=== PATIENT | female | born 1935 | race Caucasian/White ===

== ENCOUNTER 2018-01-21 11:23 | Outpatient (CLI) | payer MEDICARE ==
[2018-01-21 12:58] LABS: Hemoglobin 13.4 g/dL (12.0-16.0); Mean Corpuscular HGB CONC 33.6 g/dL (32.0-36.0); Mean Corpuscular Hemoglobin 33.1 pg (27.0-31.0); Mean Corpuscular Volume 98.6 fl (81.0-99.0); Mean Platelet Volume 9.1 fL (7.4-10.4); Platelet Count 288 thou/uL (130-400); RBC Distribution Width 12.4 % (11.5-14.5); Red Blood Cell (RBC) Count 4.06 mill/uL (4.20-5.40)
[2018-01-21 13:16] LABS: Anion Gap 14 mmol/L (10-20); BUN (Urea Nitrogen) 13 mg/dL (9.8-20.1); Calc. Creatinine Clearance 0 mL/min (70-130); Calcium 9.6 mg/dL (7.8-10.44); Carbon Dioxide 26 mmol/L (23-31); Chloride 105 mmol/L (98-107); Estimated GFR-MDRD 69; Glucose 106 mg/dL (83-110); Potassium 3.6 mmol/L (3.5-5.1); Sodium 141 mmol/L (136-145)
== END 2018-01-21 11:24 | disposition home or self-care (01) ==
LOC: LABBT 11:23
PROVIDERS: ATTEND Internal Medicine Cardiovascular Disease
DX: Z01.812 Encounter for preprocedural laboratory examination (principal); I48.91 Unspecified atrial fibrillation
CPT/HCPCS: 80048; 85027

== ENCOUNTER 2018-01-22 06:01 | Day surgery (SDC) | payer MEDICARE ==
[2018-01-21 11:33] VITALS: BMI 35.9
[2018-01-22] MEDS ORDERED: Diprivan 20 ML ONE (07:40)
--- NOTE | 2018-01-22 09:31 | OP ---
DATE OF PROCEDURE: 01/22/2018 PROCEDURE: Cardioversion INDICATIONS: Atrial fibrillation, symptomatic. SURGEON: Dr. Flex Baker The patient was brought to the post-cath area in the fasting state. She was sedated by Anesthesia. She was given a 200 joules direct current energy and converted to sinus rhythm. The energy with sync hronized. CONCLUSION: Successful cardioversion. DIAGNOSIS: Atrial fibrillation.
== END 2018-01-22 08:53 | disposition home or self-care (01) ==
LOC: CCL 06:01
PROVIDERS: ATTEND Internal Medicine Cardiovascular Disease
PROC: 5A2204Z Restoration of Cardiac Rhythm, Single (ICD-10-PCS; principal; 2018-01-22)
DX: I48.1 Persistent atrial fibrillation (principal); E11.9 Type 2 diabetes mellitus without complications; I11.0 Hypertensive heart disease with heart failure; I50.32 Chronic diastolic (congestive) heart failure; Z79.01 Long term (current) use of anticoagulants; Z79.899 Other long term (current) drug therapy
CPT/HCPCS: 92960; J2704

== ENCOUNTER 2018-06-26 12:56 | Outpatient (CLI) | payer MEDICARE ==
[2018-06-26 15:32] LABS: #Basophils 0.1 thou/uL (0.0-0.2); #Eosinphils 0.2 thou/uL (0.0-0.7); #Lymphocytes 4.4 thou/uL (1.20-3.40); #Monocytes 0.6 thou/uL (0.11-0.59); #Neutrophils 5.3 thou/uL (1.40-6.50); %Basophils 0.9 % (0.0-1.0); %Eosinophils 2.3 % (0.0-10.0); %Lymphocytes 41.1 % (21.0-51.0); %Neutrophils 49.8 % (42.0-75.0); Hemoglobin 12.7 g/dL (12.0-16.0); Mean Platelet Volume 9.1 fL (7.4-10.4); Platelet Count 294 thou/uL (130-400); RBC Distribution Width 12.1 % (11.5-14.5); Red Blood Cell (RBC) Count 3.73 mill/uL (4.20-5.40); White Blood Cell (WBC) Count 10.6 thou/uL (4.8-10.8)
[2018-06-26 15:53] LABS: Anion Gap 15 mmol/L (10-20); BUN (Urea Nitrogen) 15 mg/dL (9.8-20.1); Calc. Creatinine Clearance 0 mL/min (70-130); Calcium 9.2 mg/dL (7.8-10.44); Carbon Dioxide 24 mmol/L (23-31); Chloride 105 mmol/L (98-107); Estimated GFR-MDRD 65; Glucose 74 mg/dL (83-110); Potassium 3.9 mmol/L (3.5-5.1); Sodium 140 mmol/L (136-145)
== END 2018-06-26 12:57 | disposition home or self-care (01) ==
LOC: LABBT 12:56
PROVIDERS: ATTEND Internal Medicine Cardiovascular Disease
DX: Z01.812 Encounter for preprocedural laboratory examination (principal)
CPT/HCPCS: 80048; 85025

== ENCOUNTER → 2018-07-03 | Day surgery (SDC) | payer MEDICARE ==
[~2018-07-03] MED LIST: PROPOFOL 0 ML ONE; PROPOFOL 20 ML ONE
--- NOTE | 2018-07-03 09:37 | OP ---
CARDIOLOGY PROCEDURE NOTE: Date: 07/03/18 PROCEDURE: Cardioversion. INDICATION: Recurrent atrial fibrillation. PROCEDURE DETAILS: The patient was brought to the recovery area in the fasting state. She was given intravenous sedation by anesthesia. Following that, she was given 150 joules of direct current energy synchronized and sh e converted to sinus rhythm. CONCLUSION: Successful cardioversion.
--- NOTE | 2018-07-03 09:47 | DIS ---
Ms. Navarro came in for outpatient cardioversion that was successfully done with 150 joules. The patien t developed difficulty breathing with fluid retention after a previous cardioversion therefore we man l give her furosemide 40 mg orally, potassium 40 mEq orally today and then resume previous dose. She will see us in the office. She will take amiodarone 200 mg twice a day for 1 week, then 200 mg once a day. If she has recurrent atrial fibrillation I would give a very strong consideration to a biven tricular pacemaker insertion and ablating the AV junction at a later time. I would not cardiovert ag ain if there is any recurrence anytime in the near future.
== END ==
LOC: SDC 06:06
PROVIDERS: ATTEND Internal Medicine Cardiovascular Disease
PROC: 5A2204Z Restoration of Cardiac Rhythm, Single (ICD-10-PCS; principal; 2018-07-03)
DX: I48.1 Persistent atrial fibrillation (principal); Z79.01 Long term (current) use of anticoagulants; Z79.899 Other long term (current) drug therapy; Z88.2 Allergy status to sulfonamides
CPT/HCPCS: 92960; J2704

== ENCOUNTER → 2021-02-22 | Day surgery (SDC) | payer MEDICARE ==
[2021-02-20 09:12] VITALS: BMI 31.6
[~2021-02-22] MED LIST changes: -PROPOFOL 0 ML ONE
[2021-02-22 07:20] LABS: #Basophils 0.1 thou/uL (0.0-0.2); #Eosinphils 0.1 thou/uL (0.0-0.7); #Lymphocytes 3.7 thou/uL (1.20-3.40); #Monocytes 0.6 thou/uL (0.11-0.59); #Neutrophils 5.7 thou/uL (1.40-6.50); %Basophils 1.3 % (0.0-1.0); %Eosinophils 1.4 % (0.0-10.0); %Lymphocytes 35.9 % (21.0-51.0); %Monocytes 5.8 % (0.0-10.0); %Neutrophils 55.7 % (42.0-75.0); Hemoglobin 14.1 g/dL (12.0-16.0); Mean Corpuscular HGB CONC 33.5 g/dL (32.0-36.0); Mean Corpuscular Hemoglobin 34.9 pg (27.0-31.0); Mean Platelet Volume 9.4 fL (7.4-10.4); Platelet Count 240 thou/uL (130-400); RBC Distribution Width 11.6 % (11.5-14.5); Red Blood Cell (RBC) Count 4.04 mill/uL (4.20-5.40); White Blood Cell (WBC) Count 10.2 thou/uL (4.8-10.8)
[2021-02-22 07:43] LABS: Anion Gap 15 mmol/L (10-20); BUN (Urea Nitrogen) 27 mg/dL (9.8-20.1); Calc. Creatinine Clearance 50 mL/min (70-130); Calcium 9.3 mg/dL (7.8-10.44); Carbon Dioxide 21 mmol/L (23-31); Chloride 108 mmol/L (98-107); Glucose 109 mg/dL (83-110); Potassium 4.4 mmol/L (3.5-5.1); Sodium 140 mmol/L (136-145)
== END ==
LOC: CCL 05:57
PROVIDERS: ATTEND Internal Medicine Cardiovascular Disease
PROC: 5A2204Z Restoration of Cardiac Rhythm, Single (ICD-10-PCS; principal; 2021-02-22)
DX: I48.0 Paroxysmal atrial fibrillation (principal); E78.2 Mixed hyperlipidemia; I11.0 Hypertensive heart disease with heart failure; I50.32 Chronic diastolic (congestive) heart failure; I73.9 Peripheral vascular disease, unspecified; I65.23 Occlusion and stenosis of bilateral carotid arteries; E04.1 Nontoxic single thyroid nodule; I35.0 Nonrheumatic aortic (valve) stenosis; Z79.01 Long term (current) use of anticoagulants; Z79.899 Other long term (current) drug therapy; Z88.2 Allergy status to sulfonamides
CPT/HCPCS: 36415; 80048; 85025; 93005; 93010; J2704

== ENCOUNTER 2022-10-19 14:55 | Inpatient (IN) | payer MEDICARE ==
[2022-10-19] MEDS ORDERED: Bisacodyl 5 MG TAB PO PRN (20:18)
[2022-10-19] MEDS ORDERED: Guaifenesin DM 100-10/5 ML UDCUP PO PRN (20:18)
[2022-10-19] MEDS ORDERED: Senokot S 8.6-50 MG TAB PO PRN (20:18)
[2022-10-19] MEDS ORDERED: Ondansetron ODT 4 MG TAB PO PRN (20:18)
[2022-10-19] MEDS ORDERED: Ondansetron PF 4 MG/2 ML Vial IVP PRN (20:18)
[2022-10-19] MEDS ORDERED: Bisacodyl 10 MG SUPP PR PRN (20:18)
[2022-10-19] MEDS ORDERED: Levalbuterol HCl 0.63 MG/3 ML NEB NEB PRN (20:25)
[2022-10-19] MEDS ORDERED: Sodium Chloride 0.9% 1,000 ML IV SCH (20:30)
[2022-10-19] MEDS ORDERED: Dextrose 50% Abboject 50 ML SYRINGE SLOW IVP PRN (20:31)
[2022-10-19] MEDS ORDERED: HumaLOG 300 UNITS/3 ML VIAL SC PRN ×2 (20:31)
[2022-10-19] MEDS ORDERED: Dextrose 5% in Water 1,000 ML IV PRN (20:31)
[2022-10-19] MEDS: traMADol HCl 50 MG TAB PO PRN (22:53)
[2022-10-20] MEDS ORDERED: ALPRAZolam 0.25 MG TAB PO SCH (04:15)
[2022-10-20 06:04] LABS: ALT (SGPT) 85 U/L (8-55); AST (SGOT) 64 U/L (5-34); Albumin 2.9 g/dL (3.4-4.8); Alkaline Phosphatase 184 U/L (40-110); Anion Gap 15 mmol/L (10-20); BUN (Urea Nitrogen) 38 mg/dL (9.8-20.1); Bilirubin, Total 0.5 mg/dL (0.2-1.2); Calc. Creatinine Clearance 56 mL/min (70-130); Calcium 8.5 mg/dL (7.8-10.44); Carbon Dioxide 15 mmol/L (23-31); Chloride 113 mmol/L (98-107); Estimated GFR 64; Glucose 83 mg/dL (83-110); Magnesium 2.2 mg/dL (1.6-2.6); Potassium 4.6 mmol/L (3.5-5.1); Protein, Total 5.9 g/dL (5.8-8.1); Sodium 138 mmol/L (136-145)
[2022-10-20 06:53] LABS: Band 9 % (5-11); Lymphocytes 9 % (21-51); MDiff Complete? YES; Mean Corpuscular HGB CONC 31.5 g/dL (32.0-36.0); Mean Corpuscular Hemoglobin 33.9 pg (27.0-31.0); Mean Platelet Volume 10.1 fL (7.4-10.4); Monocytes 3 % (0-10); Neutrophil 79 % (42-75); Platelet Count 239 10x3/uL (130-400); RBC Distribution Width 12.7 % (11.5-14.5); RBC Morphology Normal; Red Blood Cell (RBC) Count 4.12 mill/uL (4.20-5.40)
[2022-10-20] MEDS: FLUoxetine HCl 20 MG CAP PO SCH (08:50)
[2022-10-20] MEDS: Valsartan 80 MG TAB PO SCH (08:50)
[2022-10-20] MEDS: Potassium Chloride 20 MEQ TAB PO SCH (08:50)
[2022-10-20] MEDS: Ezetimibe 10 MG TAB PO SCH (08:51)
[2022-10-20] MEDS: Spironolactone 25 MG TAB PO SCH (08:51)
[2022-10-20] MEDS: Levothyroxine Sodium 75 MCG TAB PO SCH (08:51)
[2022-10-20] MEDS ORDERED: Pantoprazole 40 MG VIAL IVP SCH (09:00)
[2022-10-20] MEDS ORDERED: Furosemide 20 MG TAB PO SCH (09:00)
[2022-10-20] MEDS: Furosemide 20 MG/2 ML VIAL SLOW IVP SCH (15:43)
[2022-10-21] MEDS ORDERED: ALPRAZolam 0.25 MG TAB PO SCH (00:15)
[2022-10-21] MEDS: Furosemide 20 MG/2 ML VIAL SLOW IVP SCH (05:46)
[2022-10-21] MEDS ORDERED: Digoxin 0.125 MG TAB PO SCH ×2 (09:00)
[2022-10-21] MEDS: Spironolactone 25 MG TAB PO SCH (09:51)
[2022-10-21] MEDS: Levothyroxine Sodium 75 MCG TAB PO SCH (09:55)
[2022-10-21] MEDS: Ezetimibe 10 MG TAB PO SCH (09:56)
[2022-10-21] MEDS ORDERED: FLUoxetine HCl 10 MG CAP PO SCH (10:00)
[2022-10-21] MEDS: Potassium Chloride 20 MEQ TAB PO SCH (10:01)
[2022-10-21] MEDS: Valsartan 80 MG TAB PO SCH (10:10)
[2022-10-21] MEDS: FLUoxetine HCl 20 MG CAP PO SCH (10:18)
[2022-10-21 11:22] LABS: Anion Gap 17 mmol/L (10-20); BUN (Urea Nitrogen) 31 mg/dL (9.8-20.1); Calc. Creatinine Clearance 49 mL/min (70-130); Calcium 8.9 mg/dL (7.8-10.44); Carbon Dioxide 16 mmol/L (23-31); Chloride 105 mmol/L (98-107); Estimated GFR 58; Glucose 119 mg/dL (83-110); Potassium 5.2 mmol/L (3.5-5.1); Sodium 133 mmol/L (136-145)
[2022-10-21 11:34] LABS: Lactic Acid 2.6 mmol/L (0.5-2.2)
[2022-10-21 12:14] LABS: #Basophils 0.1 thou/uL (0.0-0.2); #Eosinphils 0.1 thou/uL (0.0-0.7); #Lymphocytes 2.3 thou/uL (1.20-3.40); #Monocytes 1.2 thou/uL (0.11-0.59); #Neutrophils 18.6 thou/uL (1.40-6.50); %Basophils 0.2 % (0.0-1.0); %Eosinophils 0.3 % (0.0-10.0); %Lymphocytes 10.4 % (21.0-51.0); %Monocytes 5.3 % (0.0-10.0); %Neutrophils 83.8 % (42.0-75.0); Hemoglobin 15.4 g/dL (12.0-16.0); Mean Platelet Volume 10.2 fL (7.4-10.4); Platelet Count 252 10x3/uL (130-400); RBC Distribution Width 12.8 % (11.5-14.5); Red Blood Cell (RBC) Count 4.53 mill/uL (4.20-5.40); White Blood Cell (WBC) Count 22.2 10x3/uL (4.8-10.8)
[2022-10-21 14:50] LABS: Bacteria/HPF None Seen HPF (None Seen); Bilirubin Negative (Negative); Blood, Urine Negative (Negative); Clarity Clear (Clear); Glucose, Urine (Dipstick) Normal (Negative); Ketone, Urine Negative (Negative); Leukocyte Negative Leu/uL (Negative); Nitrite Negative (Negative); Protein, Urine (Dipstick) Negative (Neg-Trace); RBC/HPF None Seen HPF (0-3); Specific Gravity, Urine 1.038 (1.002-1.036); Squamous Epithelial 0-3 HPF (0-3); Urobilinogen Normal mg/dL (Less than 2); WBC/HPF 0-3 HPF (0-3); pH, Urine 5.5 (5.0-9.0)
[2022-10-21] MEDS ORDERED: Iopamidol 370 76% 100 ML VIAL ONE (15:34)
[2022-10-21 16:39] LABS: Pleural Fluid, Protein 2.6 g/dL
[2022-10-21 17:01] LABS: RBC Count-Automated (BF) 2765 /cu.mm; WBC/Nucleated-Auto (BF) 674 /cu.mm
[2022-10-21 18:22] LABS: BF Color Yellow; Body Fluid Source Thoracentesis Fluid; Clarity Hazy (Clear); Tube # EDTA
[2022-10-21 18:37] LABS: BF Segmented Neutrophils 9 %; Cell Count Non Hematic 12 %; Eosinophils 5 %; Lymphocytes 74 %
[2022-10-21 19:56] LABS: Lactic Acid 2.1 mmol/L (0.5-2.2)
[2022-10-21 19:59] LABS: Anion Gap 15 mmol/L (10-20); BUN (Urea Nitrogen) 34 mg/dL (9.8-20.1); Calc. Creatinine Clearance 49 mL/min (70-130); Calcium 9.4 mg/dL (7.8-10.44); Carbon Dioxide 16 mmol/L (23-31); Chloride 107 mmol/L (98-107); Estimated GFR 58; Glucose 116 mg/dL (83-110); Potassium 4.4 mmol/L (3.5-5.1); Sodium 134 mmol/L (136-145)
[2022-10-21] MEDS ORDERED: Sodium Bicarb 50 MEQ/50 ML Abboject 8.4% SYRINGE IVP SCH (20:45)
[2022-10-21] MEDS: Multivit, Therapeutic 1 TAB PO SCH ×2 (22:18→22:19)
[2022-10-21] MEDS: Sodium Bicarbonate Tab 325 MG TAB PO SCH (22:19)
[2022-10-21] MEDS: Folic Acid 1 MG TAB PO SCH (22:19)
[2022-10-21] MEDS: guaiFENesin ER 600 MG TAB PO SCH (22:19)
[2022-10-21] MEDS: Cyanocobalamin (Vitamin B-12) 1,000 MCG TAB PO SCH (22:19)
[2022-10-21] MEDS ORDERED: Sodium Bicarb 50 MEQ/50 ML VIAL IVP SCH (22:30)
[2022-10-22 05:10] LABS: #Eosinphils 0.1 thou/uL (0.0-0.7); #Lymphocytes 2.8 thou/uL (1.20-3.40); #Monocytes 1.3 thou/uL (0.11-0.59); #Neutrophils 14.9 thou/uL (1.40-6.50); %Basophils 0.1 % (0.0-1.0); %Eosinophils 0.4 % (0.0-10.0); %Lymphocytes 14.5 % (21.0-51.0); %Monocytes 6.6 % (0.0-10.0); %Neutrophils 78.4 % (42.0-75.0); Hemoglobin 15.2 g/dL (12.0-16.0); Mean Corpuscular HGB CONC 33.2 g/dL (32.0-36.0); Mean Corpuscular Hemoglobin 34.4 pg (27.0-31.0); Mean Platelet Volume 9.7 fL (7.4-10.4); Platelet Count 266 10x3/uL (130-400); RBC Distribution Width 12.9 % (11.5-14.5); Red Blood Cell (RBC) Count 4.42 mill/uL (4.20-5.40)
[2022-10-22 05:29] LABS: Anion Gap 15 mmol/L (10-20); BUN (Urea Nitrogen) 32 mg/dL (9.8-20.1); Calc. Creatinine Clearance 51 mL/min (70-130); Calcium 9.2 mg/dL (7.8-10.44); Carbon Dioxide 20 mmol/L (23-31); Chloride 106 mmol/L (98-107); Estimated GFR 61; Glucose 112 mg/dL (83-110); Potassium 4.3 mmol/L (3.5-5.1); Sodium 137 mmol/L (136-145)
[2022-10-22] MEDS: FLUoxetine HCl 10 MG CAP PO SCH (10:34)
[2022-10-22] MEDS: Valsartan 80 MG TAB PO SCH (10:34)
[2022-10-22] MEDS: Spironolactone 25 MG TAB PO SCH (10:34)
[2022-10-22] MEDS: Sodium Bicarbonate Tab 325 MG TAB PO SCH ×3 (10:34→21:27)
[2022-10-22] MEDS: Ezetimibe 10 MG TAB PO SCH (10:34)
[2022-10-22] MEDS: Levothyroxine Sodium 75 MCG TAB PO SCH (10:36)
[2022-10-22] MEDS: guaiFENesin ER 600 MG TAB PO SCH ×2 (10:36→21:27)
[2022-10-22] MEDS: pyridOXINE 50 MG (B6) TAB PO SCH (10:36)
[2022-10-22] MEDS: Folic Acid 1 MG TAB PO SCH (21:27)
[2022-10-22] MEDS: Multivit, Therapeutic 1 TAB PO SCH (21:28)
[2022-10-22] MEDS: Cyanocobalamin (Vitamin B-12) 1,000 MCG TAB PO SCH (21:28)
[2022-10-23 04:53] LABS: #Eosinphils 0.1 thou/uL (0.0-0.7); #Lymphocytes 3.1 thou/uL (1.20-3.40); #Monocytes 1.2 thou/uL (0.11-0.59); %Basophils 0.1 % (0.0-1.0); %Eosinophils 0.5 % (0.0-10.0); %Lymphocytes 15.9 % (21.0-51.0); %Neutrophils 77.5 % (42.0-75.0); Hemoglobin 14.7 g/dL (12.0-16.0); Mean Corpuscular HGB CONC 33.5 g/dL (32.0-36.0); Mean Corpuscular Hemoglobin 34.8 pg (27.0-31.0); Mean Platelet Volume 10.1 fL (7.4-10.4); Platelet Count 252 10x3/uL (130-400); Red Blood Cell (RBC) Count 4.22 mill/uL (4.20-5.40); White Blood Cell (WBC) Count 19.3 10x3/uL (4.8-10.8)
[2022-10-23 05:11] LABS: Anion Gap 16 mmol/L (10-20); BUN (Urea Nitrogen) 38 mg/dL (9.8-20.1); Calc. Creatinine Clearance 50 mL/min (70-130); Calcium 9.4 mg/dL (7.8-10.44); Carbon Dioxide 20 mmol/L (23-31); Chloride 105 mmol/L (98-107); Estimated GFR 58; Glucose 103 mg/dL (83-110); Magnesium 2.2 mg/dL (1.6-2.6); Potassium 4.5 mmol/L (3.5-5.1); Sodium 136 mmol/L (136-145)
[2022-10-23 05:14] LABS: Phosphorus 3.7 mg/dL (2.3-4.7)
[2022-10-23] MEDS: pyridOXINE 50 MG (B6) TAB PO SCH (09:49)
[2022-10-23] MEDS: Valsartan 80 MG TAB PO SCH (09:49)
[2022-10-23] MEDS: FLUoxetine HCl 10 MG CAP PO SCH (09:50)
[2022-10-23] MEDS: Levothyroxine Sodium 75 MCG TAB PO SCH (09:50)
[2022-10-23] MEDS: Sodium Bicarbonate Tab 325 MG TAB PO SCH ×3 (09:50→19:45)
[2022-10-23] MEDS: Spironolactone 25 MG TAB PO SCH (09:51)
[2022-10-23] MEDS: guaiFENesin ER 600 MG TAB PO SCH ×2 (09:51→19:45)
[2022-10-23] MEDS: Ezetimibe 10 MG TAB PO SCH (09:51)
[2022-10-23] MEDS ORDERED: Enoxaparin Sodium 40 MG/0.4 ML SYRINGE SC SCH (10:45)
[2022-10-23] MEDS: Dronabinol 2.5 MG CAP PO SCH (16:46)
[2022-10-23] MEDS: Cyanocobalamin (Vitamin B-12) 1,000 MCG TAB PO SCH (19:45)
[2022-10-23] MEDS: Melatonin 3 MG TAB PO SCH (19:45)
[2022-10-23] MEDS: Folic Acid 1 MG TAB PO SCH (19:45)
[2022-10-23] MEDS: Multivit, Therapeutic 1 TAB PO SCH (19:45)
[2022-10-23] MEDS ORDERED: Nitroglycerin 0.4 MG TAB (25 Tab Bottle) ONE (20:06)
[2022-10-24] MEDS: Dronabinol 2.5 MG CAP PO SCH ×2 (07:48→15:41)
[2022-10-24] MEDS ORDERED: Albuterol Sulfate 1.25 MG/3 ML NEB NEB PRN (08:24)
[2022-10-24] MEDS: Enoxaparin Sodium 40 MG/0.4 ML SYRINGE SC SCH (08:44)
[2022-10-24] MEDS ORDERED: Senokot S 8.6-50 MG TAB PO PRN (08:45)
[2022-10-24] MEDS ORDERED: Spironolactone 25 MG TAB PO SCH (08:45)
[2022-10-24] MEDS ORDERED: Levothyroxine Sodium 75 MCG TAB PO SCH (08:45)
[2022-10-24] MEDS ORDERED: Furosemide 20 MG/2 ML VIAL SLOW IVP SCH (09:00)
[2022-10-24] MEDS: Valsartan 80 MG TAB PO SCH (09:31)
[2022-10-24] MEDS: guaiFENesin ER 600 MG TAB PO SCH ×2 (09:42→21:21)
[2022-10-24] MEDS: FLUoxetine HCl 10 MG CAP PO SCH (09:42)
[2022-10-24] MEDS: pyridOXINE 50 MG (B6) TAB PO SCH (09:42)
[2022-10-24] MEDS: Ezetimibe 10 MG TAB PO SCH (09:42)
[2022-10-24] MEDS ORDERED: Iopamidol 370 76% 100 ML VIAL ONE (10:44)
[2022-10-24] MEDS ORDERED: Magnevist 469MG/ML 20 ML VIAL ONE (11:14)
[2022-10-24] MEDS: Melatonin 3 MG TAB PO SCH (21:21)
[2022-10-24] MEDS: Cyanocobalamin (Vitamin B-12) 1,000 MCG TAB PO SCH (21:21)
[2022-10-24] MEDS: Folic Acid 1 MG TAB PO SCH (21:21)
[2022-10-24] MEDS: Multivit, Therapeutic 1 TAB PO SCH (21:26)
[2022-10-25] MEDS: Levothyroxine Sodium 75 MCG TAB PO SCH (06:17)
[2022-10-25] MEDS: Furosemide 40 MG TAB PO SCH (12:07)
[2022-10-25] MEDS: Dronabinol 2.5 MG CAP PO SCH ×2 (12:07→16:37)
[2022-10-25] MEDS: Enoxaparin Sodium 40 MG/0.4 ML SYRINGE SC SCH (12:08)
[2022-10-25] MEDS: Spironolactone 25 MG TAB PO SCH (12:08)
[2022-10-25] MEDS: Ezetimibe 10 MG TAB PO SCH (12:09)
[2022-10-25] MEDS: FLUoxetine HCl 10 MG CAP PO SCH (12:09)
[2022-10-25] MEDS: guaiFENesin ER 600 MG TAB PO SCH ×2 (12:09→20:49)
[2022-10-25] MEDS: pyridOXINE 50 MG (B6) TAB PO SCH (12:10)
[2022-10-25] MEDS: Valsartan 80 MG TAB PO SCH (12:10)
[2022-10-25] MEDS ORDERED: hydrOXYzine 25 MG TAB PO SCH (20:15)
[2022-10-25] MEDS: Melatonin 3 MG TAB PO SCH (22:15)
[2022-10-26] MEDS: traMADol HCl 50 MG TAB PO PRN (03:48)
[2022-10-26] MEDS: Levothyroxine Sodium 75 MCG TAB PO SCH (05:56)
[2022-10-26] MEDS: Furosemide 40 MG TAB PO SCH (07:56)
[2022-10-26] MEDS: Spironolactone 25 MG TAB PO SCH (07:56)
[2022-10-26] MEDS: Dronabinol 2.5 MG CAP PO SCH ×2 (07:56→16:49)
[2022-10-26] MEDS: Valsartan 80 MG TAB PO SCH ×2 (08:43→08:51)
[2022-10-26] MEDS: FLUoxetine HCl 10 MG CAP PO SCH (08:43)
[2022-10-26] MEDS: Rivaroxaban 10 MG TAB PO SCH (08:43)
[2022-10-26] MEDS: Multivit, Therapeutic 1 TAB PO SCH (08:44)
[2022-10-26] MEDS: Ezetimibe 10 MG TAB PO SCH (08:45)
[2022-10-26] MEDS: pyridOXINE 50 MG (B6) TAB PO SCH (08:45)
[2022-10-26] MEDS: Folic Acid 1 MG TAB PO SCH (08:45)
[2022-10-26] MEDS: Cyanocobalamin (Vitamin B-12) 1,000 MCG TAB PO SCH (08:45)
[2022-10-26] MEDS: guaiFENesin ER 600 MG TAB PO SCH ×2 (08:45→20:57)
[2022-10-26] MEDS ORDERED: Temazepam 15 MG CAP PO PRN (16:08)
[2022-10-26] MEDS: Melatonin 3 MG TAB PO SCH (21:10)
[2022-10-27 00:58] LABS: Anion Gap 18 mmol/L (10-20); BUN (Urea Nitrogen) 74 mg/dL (9.8-20.1); Calc. Creatinine Clearance 18 mL/min (70-130); Calcium 9.4 mg/dL (7.8-10.44); Carbon Dioxide 20 mmol/L (23-31); Chloride 102 mmol/L (98-107); Estimated GFR 18; Glucose 104 mg/dL (83-110); Magnesium 2.5 mg/dL (1.6-2.6); Potassium 4.1 mmol/L (3.5-5.1); Sodium 136 mmol/L (136-145)
[2022-10-27 01:07] LABS: Troponin I 0.021 ng/mL (< 0.028)
[2022-10-27 03:59] LABS: Troponin I 0.029 ng/mL (< 0.028)
[2022-10-27] MEDS: Levothyroxine Sodium 75 MCG TAB PO SCH (06:13)
[2022-10-27] MEDS: FLUoxetine HCl 10 MG CAP PO SCH (10:17)
[2022-10-27] MEDS: Furosemide 40 MG TAB PO SCH (10:17)
[2022-10-27] MEDS: Folic Acid 1 MG TAB PO SCH (10:18)
[2022-10-27] MEDS: pyridOXINE 50 MG (B6) TAB PO SCH (10:18)
[2022-10-27] MEDS: Ezetimibe 10 MG TAB PO SCH (10:18)
[2022-10-27] MEDS: Rivaroxaban 10 MG TAB PO SCH (10:18)
[2022-10-27] MEDS: guaiFENesin ER 600 MG TAB PO SCH ×2 (10:18→20:59)
[2022-10-27] MEDS: Spironolactone 25 MG TAB PO SCH (10:18)
[2022-10-27] MEDS: Multivit, Therapeutic 1 TAB PO SCH (10:18)
[2022-10-27] MEDS: Cyanocobalamin (Vitamin B-12) 1,000 MCG TAB PO SCH (10:19)
[2022-10-27] MEDS: Valsartan 80 MG TAB PO SCH (10:19)
[2022-10-27] MEDS: Dronabinol 2.5 MG CAP PO SCH ×2 (11:01→18:37)
[2022-10-27] MEDS: Melatonin 3 MG TAB PO SCH (20:59)
[2022-10-28] MEDS: Levothyroxine Sodium 75 MCG TAB PO SCH (05:43)
[2022-10-28 05:47] LABS: Hemoglobin 15.8 g/dL (12.0-16.0); Mean Corpuscular HGB CONC 32.4 g/dL (32.0-36.0); Mean Corpuscular Hemoglobin 34.4 pg (27.0-31.0); Mean Platelet Volume 10.4 fL (7.4-10.4); Platelet Count 220 10x3/uL (130-400); RBC Distribution Width 13.2 % (11.5-14.5); Red Blood Cell (RBC) Count 4.58 mill/uL (4.20-5.40)
[2022-10-28 05:59] LABS: Anion Gap 23 mmol/L (10-20); BUN (Urea Nitrogen) 80 mg/dL (9.8-20.1); Calc. Creatinine Clearance 17 mL/min (70-130); Calcium 9.4 mg/dL (7.8-10.44); Carbon Dioxide 17 mmol/L (23-31); Chloride 102 mmol/L (98-107); Estimated GFR 16; Glucose 71 mg/dL (83-110); Potassium 4.6 mmol/L (3.5-5.1); Sodium 137 mmol/L (136-145)
[2022-10-28] MEDS ORDERED: Sodium Chloride 0.9% 1,000 ML IV SCH (10:00)
[2022-10-28] MEDS: FLUoxetine HCl 10 MG CAP PO SCH (10:15)
[2022-10-28] MEDS: guaiFENesin ER 600 MG TAB PO SCH ×2 (10:16→20:42)
[2022-10-28] MEDS: Cyanocobalamin (Vitamin B-12) 1,000 MCG TAB PO SCH (10:19)
[2022-10-28] MEDS: Multivit, Therapeutic 1 TAB PO SCH (10:20)
[2022-10-28] MEDS: Folic Acid 1 MG TAB PO SCH (10:20)
[2022-10-28] MEDS: Spironolactone 25 MG TAB PO SCH (10:20)
[2022-10-28] MEDS: Ezetimibe 10 MG TAB PO SCH (10:20)
[2022-10-28] MEDS: pyridOXINE 50 MG (B6) TAB PO SCH (10:21)
[2022-10-28] MEDS: Rivaroxaban 15 MG TAB PO SCH (10:28)
[2022-10-28] MEDS: Dronabinol 2.5 MG CAP PO SCH ×2 (10:37→20:14)
[2022-10-28] MEDS: Rivaroxaban 10 MG TAB PO SCH (10:44)
[2022-10-28] MEDS ORDERED: Acetaminophen 500 MG TAB PO PRN (10:52)
[2022-10-28] MEDS ORDERED: Acetaminophen 500 MG TAB PO SCH (11:15)
[2022-10-28] MEDS: Furosemide 40 MG TAB PO SCH (15:08)
[2022-10-28] MEDS: Valsartan 80 MG TAB PO SCH (15:09)
[2022-10-28] MEDS: Melatonin 3 MG TAB PO SCH (20:43)
[2022-10-28] MEDS ORDERED: Furosemide 40 MG/4 ML VIAL SLOW IVP SCH (22:30)
[2022-10-29 05:36] LABS: Anion Gap 22 mmol/L (10-20); BUN (Urea Nitrogen) 91 mg/dL (9.8-20.1); Calc. Creatinine Clearance 14 mL/min (70-130); Calcium 9.2 mg/dL (7.8-10.44); Carbon Dioxide 16 mmol/L (23-31); Chloride 105 mmol/L (98-107); Estimated GFR 13; Potassium 5.1 mmol/L (3.5-5.1); Sodium 138 mmol/L (136-145)
[2022-10-29 05:52] LABS: Glucose 56 mg/dL (83-110)
[2022-10-29] MEDS: Levothyroxine Sodium 75 MCG TAB PO SCH (06:00)
[2022-10-29] MEDS ORDERED: Artificial Tear Sol 15 ML BOT EA EYE PRN (09:46)
[2022-10-29 10:34] VITALS: BMI 27.6
[2022-10-29] MEDS: Spironolactone 25 MG TAB PO SCH (11:02)
[2022-10-29] MEDS: Rivaroxaban 15 MG TAB PO SCH (11:02)
[2022-10-29] MEDS ORDERED: Scopolamine 1.5 mg/72 hour Patch TD SCH (12:00)
[2022-10-29] MEDS ORDERED: Lorazepam 2 MG/ML VIAL SLOW IVP PRN (13:42)
[2022-10-29] MEDS ORDERED: Lorazepam 2 MG/ML VIAL SLOW IVP SCH (13:45)
[2022-10-29] MEDS ORDERED: Morphine 4 MG/ML VIAL SLOW IVP PRN (14:14)
[2022-10-29] MEDS: Dronabinol 2.5 MG CAP PO SCH ×2 (15:01→17:52)
[2022-10-29] MEDS: pyridOXINE 50 MG (B6) TAB PO SCH (15:03)
[2022-10-29] MEDS: Multivit, Therapeutic 1 TAB PO SCH (15:04)
[2022-10-29] MEDS: FLUoxetine HCl 10 MG CAP PO SCH (15:04)
[2022-10-29] MEDS: Folic Acid 1 MG TAB PO SCH (15:04)
[2022-10-29] MEDS: Ezetimibe 10 MG TAB PO SCH (15:04)
[2022-10-29] MEDS: guaiFENesin ER 600 MG TAB PO SCH (15:04)
[2022-10-29] MEDS: Cyanocobalamin (Vitamin B-12) 1,000 MCG TAB PO SCH (15:05)
[2022-10-29] MEDS ORDERED: Glycopyrrolate 0.2 MG/ML 5 ML SYRINGE SLOW IVP SCH (15:21)
[2022-10-29 18:09] VITALS: BP 97/49; TEMP 97.7
[2022-10-29] MEDS ORDERED: Temazepam 15 MG CAP PO SCH (21:00)
[2022-10-29] MEDS ORDERED: GLYCOPYRROLATE/PF 0.2 MG/ML VIAL SLOW IVP SCH (22:00)
[2022-10-29] MEDS ORDERED: Glycopyrrolate 0.4 MG/ 2 ML VIAL SLOW IVP SCH (22:00)
== END 2022-10-29 18:15 | disposition hospice, inpatient (51) | DRG 180 ==
LOC: MSONC 17:31 → 2NO 10-20 14:30 → MSONC 10-23 20:14 → 2NO 10-27 00:02
PROVIDERS: ADMIT Hospitalist; ATTEND Family Medicine
PROC: 0W993ZZ Drainage of Right Pleural Cavity, Percutaneous Approach (ICD-10-PCS; principal; 2022-10-21)
DX: C34.01 Malignant neoplasm of right main bronchus (principal); J96.01 Acute respiratory failure with hypoxia; N17.9 Acute kidney failure, unspecified; I48.19 Other persistent atrial fibrillation; I50.32 Chronic diastolic (congestive) heart failure; E87.20 Acidosis, unspecified; J91.0 Malignant pleural effusion; N18.5 Chronic kidney disease, stage 5; I13.2 Hypertensive heart and chronic kidney disease with heart failure and with stage 5 chronic kidney disease, or end stage renal disease; Z66 Do not resuscitate; Z51.5 Encounter for palliative care; E78.5 Hyperlipidemia, unspecified; E03.9 Hypothyroidism, unspecified; E86.0 Dehydration; M48.00 Spinal stenosis, site unspecified; R13.12 Dysphagia, oropharyngeal phase; R63.0 Anorexia; D63.1 Anemia in chronic kidney disease; E11.22 Type 2 diabetes mellitus with diabetic chronic kidney disease; E87.5 Hyperkalemia; Z79.01 Long term (current) use of anticoagulants; Z88.2 Allergy status to sulfonamides; Z79.899 Other long term (current) drug therapy; Z79.890 Hormone replacement therapy; Z90.49 Acquired absence of other specified parts of digestive tract; Z90.710 Acquired absence of both cervix and uterus; Z87.891 Personal history of nicotine dependence; Z68.27 Body mass index [BMI] 27.0-27.9, adult
CPT/HCPCS: 36415; 36416; 70470; 70553; 71045; 71260; 74177; 80048; 80053; 81001; 82945; 83605; 83615; 83735; 83880; 84100; 84145; 84157; 84443; 84484; 85025; 85027; 85060; 87070; 87205; 88112; 88305; 88341; 88342; 88360; 89051; 93005; 93010; 94640; A9579; J1650; J1940; J2060; J2270; J7050; J7999; Q0167; Q9967

== ENCOUNTER 2022-10-29 22:16 | Inpatient (IN) | payer OTHER ==
[2022-10-29] MEDS ORDERED: Bisacodyl 10 MG SUPP PR PRN (22:43)
[2022-10-29] MEDS ORDERED: Lorazepam 2 MG/ML VIAL ONE (22:43)
[2022-10-29] MEDS ORDERED: Acetaminophen 650 MG Suppository PR PRN (22:45)
[2022-10-29] MEDS ORDERED: Scopolamine 1.5 mg/72 hour Patch TOP PRN (22:45)
[2022-10-29] MEDS ORDERED: Ondansetron PF 4 MG/2 ML Vial IVP PRN (22:45)
[2022-10-29] MEDS ORDERED: Haloperidol Lactate 5 MG/ML VIAL SLOW IVP PRN (22:45)
[2022-10-29] MEDS ORDERED: diphenhydrAMINE 50 MG/ML VIAL IVP PRN (22:45)
[2022-10-29] MEDS ORDERED: Promethazine HCl 25 MG SUPP PR PRN (22:45)
[2022-10-29] MEDS: Lorazepam 2 MG/ML VIAL SLOW IVP PRN (22:50)
[2022-10-29] MEDS: Morphine 4 MG/ML VIAL SLOW IVP PRN (23:25)
[2022-10-30 04:24] VITALS: BMI 29.1
[2022-10-30] MEDS: Lorazepam 2 MG/ML VIAL SLOW IVP PRN ×2 (06:14→10:25)
[2022-10-30] MEDS: Morphine 4 MG/ML VIAL SLOW IVP PRN (06:26)
[2022-10-30 11:17] VITALS: BP 51/24; TEMP 96
== END 2022-10-30 18:05 | disposition expired | DRG 951 ==
LOC: 2NO 22:16 → MSONC 10-30 10:42
PROVIDERS: ADMIT Family Medicine; ATTEND Family Medicine
DX: Z51.5 Encounter for palliative care (principal); C34.90 Malignant neoplasm of unspecified part of unspecified bronchus or lung; C79.9 Secondary malignant neoplasm of unspecified site; Z66 Do not resuscitate; I50.9 Heart failure, unspecified; I48.91 Unspecified atrial fibrillation; N28.9 Disorder of kidney and ureter, unspecified
CPT/HCPCS: J1200; J2060; J2270